=== PATIENT | male | born 1975 | race American Indian/Alaskan Native ===

== ENCOUNTER 2019-03-20 18:49 | Emergency (ER) | payer SELFPAY ==
[2019-03-20 19:34] VITALS: BP 149/103
[2019-03-20 20:23] LABS: Hematocrit 44.9 % (35.5-45.6); Hemoglobin 15.7 gm/dl (11.8-15.2); Mean Corpuscular HGB Conc 35 % (32-34); Mean Corpuscular Volume 91 fl (84-94); Platelet Count 278 K/mm3 (140-440); Red Blood Count 4.94 M/mm3 (3.65-5.03); Red Cell Distribution Width 13.5 % (13.2-15.2)
[2019-03-20 20:33] LABS: Alanine Aminotransferase 27 units/L (7-56); Albumin 4.9 g/dL (3.9-5); BUN/Creatinine Ratio 11; Blood Urea Nitrogen 10 mg/dL (9-20); Calcium 9.6 mg/dL (8.4-10.2); Hemolysis Index 26
--- NOTE | 2019-03-20 21:29 | Emergency Department Report ---
ED Dizziness HPI - General Chief Complaint: Dizziness Stated Complaint: DIZZY Time Seen by Provider: 03/20/19 21:14 Source: patient Mode of arrival: Ambulatory Limitations: No Limitations - History of Present Illness Initial Comments: This is a pleasant 43-year-old male presents to the emergency department with a chief complaint of an episode of dizziness that started 1 hour prior to arrival to the emergency department. Patient states this episode lasted approximately an hour and a half and resolved. 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 He states he had some mild weakness symptoms when he would sit. He denies any vertigo, chest pain, shortness of breath, nausea, vomiting, diarrhea, abdominal pain, weakness, dysarthria, slurred speech, facial droop or any other associated symptoms. He denies any known past medical history, current medication use or known allergies to medications. He denies any recent surgeries. He denies any travel, lower extremity edema, or any significant family history. He does state he has a history of anxiety but has not had any issues for the last 20 years. He does state this episode felt similar to his previous panic attacks where he would get tachycardia, sense of impending doom and sweating. MD Complaint: dizziness Onset/Timin -: Sudden, hour(s) Description: lightheadedness History of Same: Yes History of Trauma: No Severity: mild Improves With: remaining still Worsens With: movement Associated Symptoms: denies: ataxia, chest pain, confusion, cough, diaphoresis, fever/chills, loss of appetite, malaise, rash, seizure, shortness of breath, syncope, weakness - Related Data Previous Rx's Medication Instructions Recorded Last Taken Type hydrOXYzine PAMOATE [Vistaril] 25 mg PO Q6HR PRN #15 capsule 03/20/19 Unknown Rx Allergies Allergy/AdvReac Type Severity Reaction Status Date / Time No Known Allergies Allergy Unverified 03/20/19 18:55 ED Review of Systems ROS: Stated complaint: DIZZY Other details as noted in HPI Comment: All other systems reviewed and negative Constitutional: denies: chills, fever Eyes: denies: eye pain, eye discharge, vision change ENT: denies: ear pain, throat pain Respiratory: denies: cough, shortness of breath, wheezing Cardiovascular: denies: chest pain, palpitations Endocrine: no symptoms reported Gastrointestinal: denies: abdominal pain, nausea, diarrhea Genitourinary: denies: urgency, dysuria Musculoskeletal: denies: back pain, joint swelling, arthralgia Skin: denies: rash, lesions Neurological: other (dizziness). denies: headache, weakness, paresthesias Psychiatric: denies: anxiety, depression Hematological/Lymphatic: denies: easy bleeding, easy bruising ED Past Medical Hx - Past Medical History Previous Medical History?: Yes Additional medical history: anxiety - Surgical History Past Surgical History?: No - Social History Smoking Status: Current Every Day Smoker Substance Use Type: None - Medications Home Medications: Home Medications Medication Instructions Recorded Confirmed Last Taken Type hydrOXYzine PAMOATE [Vistaril] 25 mg PO Q6HR PRN #15 capsule 03/20/19 Unknown Rx ED Physical Exam - General Limitations: No Limitations General appearance: alert, in no apparent distress - Head Head exam: Present: atraumatic, normocephalic - Eye Eye exam: Present: normal appearance - ENT ENT exam: Present: mucous membranes moist - Neck Neck exam: Present: normal inspection, full ROM. Absent: meningismus - Respiratory Respiratory exam: Present: normal lung sounds bilaterally. Absent: respiratory distress, wheezes, rales, rhonchi, stridor - Cardiovascular Cardiovascular Exam: Present: regular rate, normal rhythm, normal heart sounds. Absent: irregular rhythm, systolic murmur, diastolic murmur, rubs, gallop - GI/Abdominal GI/Abdominal exam: Present: soft, normal bowel sounds. Absent: distended, tenderness, guarding - Rectal Rectal exam: Present: deferred - Extremities Exam Extremities exam: Present: normal inspection, full ROM, other (no posterior calf tenderness, negative Homans sign bilaterally,) - Back Exam Back exam: Present: normal inspection, full ROM (no palpable cords.) - Neurological Exam Neurological exam: Present: alert, oriented X3, normal gait, other (normal cranial nerves II through XII intact, normal strength and sensation of the bilateral upper and lower extremities, normal speech, no focal neurologic deficits.) - Psychiatric Psychiatric exam: Present: normal affect, normal mood - Skin Skin exam: Present: warm, dry, intact, normal color. Absent: rash ED Course Vital Signs 03/20/19 19:30 Temperature 97.6 F Pulse Rate 123 H Respiratory 20 Rate Blood Pressure 149/103 O2 Sat by Pulse 100 Oximetry ED Medical Decision Making - Lab Data Result diagrams: 03/20/19 19:40 03/20/19 19:40 Laboratory Results - last 24 hr 03/20/19 03/20/19 19:40 19:40 WBC 6.8 RBC 4.94 Hgb 15.7 H Hct 44.9 MCV 91 MCH 32 MCHC 35 H RDW 13.5 Plt Count 278 Sodium 141 Potassium 4.1 Chloride 102.2 Carbon Dioxide 25 Anion Gap 18 BUN 10 Creatinine 0.9 Estimated GFR > 60 BUN/Creatinine Ratio 11 Glucose 107 H Calcium 9.6 Total Bilirubin 0.60 AST 26 ALT 27 Alkaline Phosphatase 68 Total Protein 8.0 Albumin 4.9 Albumin/Globulin Ratio 1.6 - EKG Data -: EKG Interpreted by Me EKG shows normal: sinus rhythm Rate: normal - EKG Data 03/20/19 22:15 Normal sinus rhythm rate of 98. No acute ST or T-wave abnormalities, no STEMI, normal axis, normal intervals. No comparison. STEMI per ER M.D. - Medical Decision Making Patient is nontoxic in no acute distress. Vitals initially showed tachycardia when the patient presented with some mildly elevated blood pressure, no fever or hypoxia. The patient's symptoms have completely resolved and his repeat vitals are per normal. Orthostatic vitals were negative and there were no evidence of orthostasis. Patient's EKG was negative. No cardiac risk factors including no history of diabetes, hypertension, hyperlipidemia, smoking or strong family history of cardiac disease. Patient had no chest pain or shortness of breath during this episode. The patient in no respiratory distress for PE with no lower extremity edema and a negative Homans sign and other than tachycardia at a low risk by well's criteria as well score was 1. The patient had no recent travel elevation or family history of thromboembolic disease. The patient's NIH score was 0. No focal neurologic deficits. The patient states this felt very similar to previous anxiety attacks suspect this likely was causing this. I recommended outpatient follow-up with primary care doctor due to his elevated blood pressure to have a repeat check to determine if blood pressure medications needed. Educated by DASH diet and lites, medications. All questions were answered and he verbalized understanding of diagnosis, treatment plan and follow-up instructions. Critical care attestation.: If time is entered above; I have spent that time in minutes in the direct care of this critically ill patient, excluding procedure time. ED Disposition Clinical Impression: Lightheadedness Disposition: DC-01 TO HOME OR SELFCARE Is pt being admited?: No Does the pt Need Aspirin: No Condition: Stable Instructions: Lightheadedness (ED) Prescriptions: hydrOXYzine PAMOATE [Vistaril] 25 mg PO Q6HR PRN #15 capsule PRN Reason: Anxiety Referrals: PRIMARY CARE, [Primary Care Provider] - 3-5 Days [facility] [Provider Group] - 3-5 Days Forms: Work/School Release Form(ED) Time of Disposition: 22:18
== END 2019-03-20 22:35 | disposition home or self-care (01) ==
LOC: ED 18:49
DX: R42 Dizziness and giddiness (principal); F41.9 Anxiety disorder, unspecified; F17.200 Nicotine dependence, unspecified, uncomplicated; Z79.899 Other long term (current) drug therapy
CPT/HCPCS: 36415; 80053; 85027; 93005; 93010; 99283

== ENCOUNTER 2020-10-07 16:20 | Emergency (ER) | payer SELFPAY ==
[2020-10-07 18:12] VITALS: BP 192/119
--- NOTE | 2020-10-07 18:21 | Event Note ---
ED Screening Note ED Screening Note: pt presents for palpitations he states he feels anxious he states he has had this in the past he denies any fever, cough, SOB, CP, leg swelling, dizziness, lightheadedness no hx of HTN not on any medications not on anything for anxiety denies tobacco, ETOH, and drug use tachycardia and HTN in triage This initial assessment/diagnostic orders/clinical plan/treatment(s) is/are subject to change based on patients health status, clinical progression and re- assessment by fellow clinical providers in the ED. Further treatment and workup at subsequent clinical providers discretion. Patient/guardian urged not to elope from the ED as their condition may be serious if not clinically assessed and managed. Initial orders include: labs, EKG, CXR, UA, UDS
--- NOTE | 2020-10-15 11:03 | Electrocardiograph Report ---
[facility] Test Date: 2020-10-07 Test Time: 18:26:24 Pat Name: HANS CHENEY Department: Room: Gender: M Principal Engineer: RACHAEL : 1975 Requested By: KORY LEDESMA Order Number: [id number] Reading MD: Michelle Vasquez Measurements Intervals [place] Rate: 130 P: 51 MD: 142 QRS: -40 QRSD: 88 T: 53 QT: 308 QTc: 452 Interpretive Statements Sinus tachycardia No previous ECG available for comparison Electronically Signed On 10-15-2020 11:02:36 EDT by Michelle Vasquez
== END 2020-10-07 20:30 | disposition left against medical advice (07) ==
LOC: ED 16:20
DX: R42 Dizziness and giddiness (principal); Z53.21 Procedure and treatment not carried out due to patient leaving prior to being seen by health care provider
CPT/HCPCS: 93005